=== PATIENT | female | born 1990 | race Caucasian/White ===

== ENCOUNTER 2017-07-24 11:16 | Emergency (ER) | payer OTHER, MEDICAID ==
[~2017-07-24] VITALS: Ht 162.6 cm; Wt 74.8 kg
[~2017-07-24 11:16] MED LIST: ALBUTEROL INHAL17 GM IH; COLACE100 MG PO; DOXYCYCLINE 10100 MG PO; FLAGYL500 MG PO; IBUPROFEN 800800 MG PO; MEDROL DOSPAK21 TA1 PO; PRENATAL; VENTOLIN HFA 1818 GM INH
[2017-07-24 11:42] LABS: URINE BILIRUBIN NEGATIVE (Negative); URINE BLOOD NEGATIVE (Negative); URINE CLARITY CLEAR; URINE COLOR YELLOW; URINE GLUCOSE-RANDOM NEGATIVE (Negative); URINE KETONES NEGATIVE (Negative); URINE LEUKOCYTES-REFLEX NEGATIVE (Negative); URINE NITRITE-REFLEX NEGATIVE (Negative); URINE PROTEIN NEGATIVE (Negative); URINE SPECIFIC GRAVITY <= 1.005 (1.005-1.030); URINE UROBILINOGEN 0.2 E.U./dl (0.2-1.0)
[2017-07-24 12:03] LABS: HEMATOCRIT 36.3 % (37.0-47.0); HEMOGLOBIN 12.3 gm/dL (12.0-15.0); MCH 30.1 pg (26.0-34.0); MCV 88.4 fL (80.0-100.0); MPV 8.3 fl. (7.2-11.1); NUCLEATED RBCS 0 /100WBC; PLATELET COUNT* 261 thou/uL (150-400); RDW-CV 14.1 % (10.5-14.5)
[2017-07-24 12:10] LABS: CALCIUM 8.5 mg/dL (8.5-10.1); CREATININE 0.6 mg/dL (0.6-1.3); POTASSIUM 3.5 mmol/L (3.5-5.1)
[2017-07-24 12:15] LABS: ALBUMIN 3.4 g/dL (3.4-5.0); TOTAL BILIRUBIN 0.7 mg/dL (<0.1-1.0); TOTAL PROTEIN 6.7 g/dL (6.4-8.2)
[2017-07-24 12:46] LABS: ABSOLUTE EOSINOPHILS 0.6 thou/uL (0.0-0.7); ABSOLUTE LYMPHOCYTES 3.1 thou/uL (0.8-5.3); ABSOLUTE MONOCYTES 0.1 thou/uL (0.0-1.2); ABSOLUTE NEUTROPHILS 2.2 thou/uL (1.6-8.1); ANISOCYTOSIS 1+; PLATELET ESTIMATE ADEQUATE; POIKILOCYTOSIS 1+
[2017-07-24 13:28] VITALS: BP 115/86
== END 2017-07-24 13:29 | disposition home or self-care (01) ==
LOC: M.ERS 11:16
PROVIDERS: Nurse Practitioner Family
DX: K42.9 Umbilical hernia without obstruction or gangrene (principal)

== ENCOUNTER 2018-01-19 14:16 | Emergency (ER) | payer OTHER, MEDICAID ==
[~2018-01-19] VITALS: Ht 160 cm; Wt 77.1 kg
[2018-01-19 14:36] LABS: URINE BILIRUBIN NEGATIVE (Negative); URINE BLOOD NEGATIVE (Negative); URINE CLARITY CLEAR; URINE COLOR YELLOW; URINE GLUCOSE-RANDOM NEGATIVE (Negative); URINE KETONES NEGATIVE (Negative); URINE LEUKOCYTES-REFLEX 1+ (Negative); URINE NITRITE-REFLEX NEGATIVE (Negative); URINE PROTEIN NEGATIVE (Negative); URINE SPECIFIC GRAVITY 1.015 (1.005-1.030); URINE UROBILINOGEN 0.2 E.U./dl (0.2-1.0)
[2018-01-19 14:46] LABS: BACTERIA-REFLEX 1-9 Few /HPF (None Seen); MUCUS 4-6 Moderate strn/LPF (None Seen); SQUAMOUS >10 Many /LPF (0-3); URINE WBC-REFLEX 0-5 Rare /HPF (0-5)
[2018-01-19 14:47] LABS: CASTS None Seen /LPF (None Seen); CRYSTALS None Seen /LPF (None Seen); URINE RBC 0-2 Rare /HPF (0-2)
[2018-01-19 14:54] LABS: ABSOLUTE EOSINOPHILS 0.4 thou/uL (0.0-0.7); ABSOLUTE LYMPHOCYTES 2.3 thou/uL (0.8-5.3); ABSOLUTE MONOCYTES 0.4 thou/uL (0.0-1.2); ABSOLUTE NEUTROPHILS 2.3 thou/uL (1.6-8.1); BASOPHILS 0.8 %; EOSINOPHILS 7.9 %; HEMATOCRIT 38.1 % (37.0-47.0); HEMOGLOBIN 12.5 gm/dL (12.0-15.0); LYMPHOCYTES 41.9 %; MCH 28.4 pg (26.0-34.0); MCHC 32.9 g/dL (28.0-37.0); MCV 86.2 fL (80.0-100.0); MONOCYTES 7.4 %; MPV 8.5 fl. (7.2-11.1); NUCLEATED RBCS 0 /100WBC; PLATELET COUNT* 287 thou/uL (150-400); RBC 4.42 mil/uL (4.20-5.00); RDW-CV 14.8 % (10.5-14.5); WBC 5.4 thou/uL (4.0-11.0)
[2018-01-19 15:02] LABS: CALCIUM 8.3 mg/dL (8.5-10.1); CREATININE 0.7 mg/dL (0.6-1.3); POTASSIUM 3.6 mmol/L (3.5-5.1)
[2018-01-19 15:06] LABS: ALBUMIN 3.8 g/dL (3.4-5.0); TOTAL BILIRUBIN 1.3 mg/dL (<0.1-1.0); TOTAL PROTEIN 7.3 g/dL (6.4-8.2)
[2018-01-19 15:53] VITALS: BP 122/83
== END 2018-01-19 15:55 | disposition home or self-care (01) ==
LOC: M.ERS 14:16
PROVIDERS: Nurse Practitioner Family
DX: N93.9 Abnormal uterine and vaginal bleeding, unspecified (principal)

== ENCOUNTER 2018-04-04 12:01 | Emergency (ER) | payer OTHER, MEDICAID ==
[~2018-04-04] VITALS: Ht 160 cm; Wt 78.0 kg
[2018-04-04 12:35] LABS: ABSOLUTE MONOCYTES 0.4 thou/uL (0.0-1.2); ABSOLUTE NEUTROPHILS 2.5 thou/uL (1.6-8.1); HEMOGLOBIN 12.6 gm/dL (12.0-15.0); MCH 28.1 pg (26.0-34.0)
[2018-04-04 12:36] LABS: ABSOLUTE EOSINOPHILS 0.4 thou/uL (0.0-0.7); ABSOLUTE LYMPHOCYTES 2.1 thou/uL (0.8-5.3); BASOPHILS 0.6 %; EOSINOPHILS 7.5 %; HEMATOCRIT 38.7 % (37.0-47.0); LYMPHOCYTES 38.3 %; MCHC 32.6 g/dL (28.0-37.0); MCV 86.2 fL (80.0-100.0); MPV 8.7 fl. (7.2-11.1); NUCLEATED RBCS 0 /100WBC; PLATELET COUNT* 287 thou/uL (150-400); POLYS 46.6 %; RBC 4.49 mil/uL (4.20-5.00); RDW-CV 15.2 % (10.5-14.5); URINE BILIRUBIN NEGATIVE (Negative); URINE BLOOD 1+ (Negative); URINE CLARITY CLEAR; URINE COLOR YELLOW; URINE GLUCOSE-RANDOM NEGATIVE (Negative); URINE KETONES NEGATIVE (Negative); URINE LEUKOCYTES-REFLEX NEGATIVE (Negative); URINE NITRITE-REFLEX NEGATIVE (Negative); URINE PROTEIN TRACE (Negative); URINE SPECIFIC GRAVITY >= 1.030 (1.005-1.030); URINE UROBILINOGEN 0.2 E.U./dl (0.2-1.0); WBC 5.4 thou/uL (4.0-11.0)
[2018-04-04 12:45] LABS: CALCIUM 8.6 mg/dL (8.5-10.1); CREATININE 0.7 mg/dL (0.6-1.3); POTASSIUM 3.4 mmol/L (3.5-5.1)
[2018-04-04 12:50] LABS: ALBUMIN 3.8 g/dL (3.4-5.0); TOTAL BILIRUBIN 1.3 mg/dL (<0.1-1.0); TOTAL PROTEIN 7.2 g/dL (6.4-8.2)
[2018-04-04 13:23] LABS: SQUAMOUS 0-3 Few /LPF (0-3)
[2018-04-04 13:24] LABS: BACTERIA-REFLEX 1-9 Few /HPF (None Seen); CASTS None Seen /LPF (None Seen); CRYSTALS None Seen /LPF (None Seen); MUCUS 0-3 Light strn/LPF (None Seen); URINE RBC 3-10 Few /HPF (0-2); URINE WBC-REFLEX 0-5 Rare /HPF (0-5)
[2018-04-04 13:40] VITALS: BP 131/93
== END 2018-04-04 13:41 | disposition home or self-care (01) ==
LOC: M.ERS 12:01
PROVIDERS: Nurse Practitioner Family
DX: N89.8 Other specified noninflammatory disorders of vagina (principal); R30.0 Dysuria; Z20.2 Contact with and (suspected) exposure to infections with a predominantly sexual mode of transmission

== ENCOUNTER 2018-05-29 11:23 | Emergency (ER) | payer OTHER, MEDICAID ==
[~2018-05-29] VITALS: Ht 157.5 cm; Wt 77.6 kg
[2018-05-29 11:49] LABS: ABSOLUTE EOSINOPHILS 0.3 thou/uL (0.0-0.7); ABSOLUTE LYMPHOCYTES 1.4 thou/uL (0.8-5.3); ABSOLUTE MONOCYTES 0.3 thou/uL (0.0-1.2); ABSOLUTE NEUTROPHILS 3.6 thou/uL (1.6-8.1); BASOPHILS 0.2 %; EOSINOPHILS 5.6 %; HEMATOCRIT 37.1 % (37.0-47.0); HEMOGLOBIN 12.3 gm/dL (12.0-15.0); LYMPHOCYTES 24.2 %; MCH 28.3 pg (26.0-34.0); MCHC 33.1 g/dL (28.0-37.0); MCV 85.5 fL (80.0-100.0); MONOCYTES 6.2 %; MPV 8.1 fl. (7.2-11.1); NUCLEATED RBCS 0 /100WBC; PLATELET COUNT* 230 thou/uL (150-400); POLYS 63.8 %; RBC 4.34 mil/uL (4.20-5.00); RDW-CV 14.8 % (10.5-14.5); WBC 5.6 thou/uL (4.0-11.0)
[2018-05-29 12:00] LABS: CREATININE 0.7 mg/dL (0.6-1.3); POTASSIUM 3.8 mmol/L (3.5-5.1)
[2018-05-29 12:04] LABS: ALBUMIN 3.2 g/dL (3.4-5.0); TOTAL BILIRUBIN 1.1 mg/dL (<0.1-1.0)
[2018-05-29 12:05] LABS: URINE BILIRUBIN NEGATIVE (Negative); URINE BLOOD NEGATIVE (Negative); URINE CLARITY CLEAR; URINE COLOR YELLOW; URINE GLUCOSE-RANDOM NEGATIVE (Negative); URINE KETONES NEGATIVE (Negative); URINE LEUKOCYTES-REFLEX NEGATIVE (Negative); URINE NITRITE-REFLEX NEGATIVE (Negative); URINE PROTEIN NEGATIVE (Negative); URINE UROBILINOGEN 0.2 E.U./dl (0.2-1.0)
[2018-05-29] MEDS ORDERED: DOXYCYCLINE MO100 M1 PO (12:43)
[2018-05-29] MEDS ORDERED: NAPROSYN500 MG PO (12:43)
[2018-05-29] MEDS ORDERED: FLAGYL500 M1 PO (13:01)
[2018-05-29 13:17] VITALS: BP 109/69
== END 2018-05-29 13:18 | disposition home or self-care (01) ==
LOC: M.ERS 11:23
PROVIDERS: Physician Assistant
DX: N72 Inflammatory disease of cervix uteri (principal); N76.0 Acute vaginitis

== ENCOUNTER 2018-08-06 10:12 | Emergency (ER) | payer OTHER, MEDICAID ==
[~2018-08-06] VITALS: Ht 160 cm; Wt 77.6 kg
[~2018-08-06 10:12] MED LIST changes: +DOXYCYCLINE MO100 M1 PO; +FLAGYL500 M1 PO; +NAPROSYN500 MG PO
[2018-08-06 10:43] LABS: URINE BILIRUBIN NEGATIVE (Negative); URINE BLOOD NEGATIVE (Negative); URINE CLARITY CLEAR; URINE COLOR YELLOW; URINE GLUCOSE-RANDOM NEGATIVE (Negative); URINE KETONES NEGATIVE (Negative); URINE LEUKOCYTES-REFLEX TRACE (Negative); URINE NITRITE-REFLEX NEGATIVE (Negative); URINE PROTEIN NEGATIVE (Negative); URINE SPECIFIC GRAVITY <= 1.005 (1.005-1.030); URINE UROBILINOGEN 0.2 E.U./dl (0.2-1.0)
[2018-08-06 10:56] LABS: ABSOLUTE EOSINOPHILS 0.3 thou/uL (0.0-0.7); ABSOLUTE MONOCYTES 0.3 thou/uL (0.0-1.2); ABSOLUTE NEUTROPHILS 1.7 thou/uL (1.6-8.1); BASOPHILS 0.6 %; EOSINOPHILS 6.3 %; HEMATOCRIT 35.4 % (37.0-47.0); LYMPHOCYTES 46.3 %; MCHC 33.8 g/dL (28.0-37.0); MONOCYTES 7.8 %; MPV 8.5 fl. (7.2-11.1); NUCLEATED RBCS 0 /100WBC; PLATELET COUNT* 267 thou/uL (150-400); RBC 4.27 mil/uL (4.20-5.00); RDW-CV 16.3 % (10.5-14.5); WBC 4.3 thou/uL (4.0-11.0)
[2018-08-06 10:56] LABS: BACTERIA-REFLEX 1-9 Few /HPF (None Seen); SQUAMOUS 0-3 Few /LPF (0-3); URINE RBC None Seen /HPF (0-2); URINE WBC-REFLEX 6-15 Few /HPF (0-5)
[2018-08-06 10:57] LABS: CASTS None Seen /LPF (None Seen); CRYSTALS None Seen /LPF (None Seen); MUCUS None Seen strn/LPF (None Seen)
[2018-08-06 11:14] LABS: ALBUMIN 3.5 g/dL (3.4-5.0); CALCIUM 8.5 mg/dL (8.5-10.1); CREATININE 0.7 mg/dL (0.6-1.3); POTASSIUM 3.8 mmol/L (3.5-5.1); TOTAL BILIRUBIN 0.6 mg/dL (<0.1-1.0); TOTAL PROTEIN 6.9 g/dL (6.4-8.2)
[2018-08-06] MEDS ORDERED: NAPROSYN500 MG PO (14:01)
[2018-08-06 14:25] VITALS: BP 139/79
== END 2018-08-06 14:25 | disposition home or self-care (01) ==
LOC: M.ERS 10:12
PROVIDERS: Physician Assistant
DX: R10.33 Periumbilical pain (principal); R10.84 Generalized abdominal pain; R10.2 Pelvic and perineal pain; Z98.890 Other specified postprocedural states

== ENCOUNTER 2018-09-18 05:17 | Emergency (ER) | payer OTHER, MEDICAID ==
[~2018-09-18] VITALS: Ht 157.5 cm; Wt 78.0 kg
[2018-09-18 05:52] LABS: HEMATOCRIT 35.1 % (37.0-47.0); HEMOGLOBIN 11.5 gm/dL (12.0-15.0); MCH 27.3 pg (26.0-34.0); MCHC 32.9 g/dL (28.0-37.0); MCV 83.2 fL (80.0-100.0); MPV 8.8 fl. (7.2-11.1); RBC 4.22 mil/uL (4.20-5.00); RDW-CV 16.1 % (10.5-14.5)
[2018-09-18 05:57] LABS: CALCIUM 7.7 mg/dL (8.5-10.1); CREATININE 0.5 mg/dL (0.6-1.3); POTASSIUM 3.4 mmol/L (3.5-5.1)
[2018-09-18 06:02] LABS: ALBUMIN 3.5 g/dL (3.4-5.0); TOTAL BILIRUBIN 0.6 mg/dL (<0.1-1.0); TOTAL PROTEIN 6.7 g/dL (6.4-8.2)
[2018-09-18 06:11] LABS: ALCOHOL 154 mg/dL (<10)
[2018-09-18 06:13] LABS: ACETAMINOPHEN < 2 ug/mL (10-30); SALICYLATE < 2.8 mg/dL (2.8-20.0)
[2018-09-18 08:08] LABS: URINE BILIRUBIN NEGATIVE (Negative); URINE BLOOD 2+ (Negative); URINE CLARITY CLEAR; URINE COLOR YELLOW; URINE GLUCOSE-RANDOM NEGATIVE (Negative); URINE KETONES NEGATIVE (Negative); URINE LEUKOCYTES NEGATIVE (Negative); URINE NITRITE NEGATIVE (Negative); URINE PROTEIN NEGATIVE (Negative); URINE SPECIFIC GRAVITY 1.015 (1.005-1.030); URINE UROBILINOGEN 0.2 E.U./dl (0.2-1.0)
[2018-09-18 08:17] LABS: BACTERIA 1-9 Few /HPF (None Seen); CASTS None Seen /LPF (None Seen); CRYSTALS None Seen /LPF (None Seen); MUCUS None Seen strn/LPF (None Seen); SQUAMOUS 4-10 Moderate /LPF (0-3); URINE RBC 3-10 Few /HPF (0-2); URINE WBC 0-5 Rare /HPF (0-5)
[2018-09-18 08:18] LABS: AMP/METHAMP Negative (Negative); BARBITURATES Negative (Negative); BENZODIAZEPINES Negative (Negative); COCAINE Negative (Negative); METHADONE Negative (Negative); OPIATES Negative (Negative); PCP Negative (Negative); THC Negative (Negative)
[2018-09-18 09:24] VITALS: BP 128/91
--- NOTE | 2018-09-18 11:28 | EKG ---
[place] [address] ELECTROCARDIOGRAM REPORT Name: ALEXANDREA COPELAND [id number] Admission: 09/18/18 Attend Phys: Discharge: 09/18/18 Date of : 89 Report #: [id number] THIS REPORT FOR: //name// [facility] ED Test Date: 2018-09-18 Test Time: 05:33:42 Pat Name: ALEXANDREA COPELAND Department: Room: Gender: F [employer]: [place] : 1990 Requested By: Inna Burns Order Number: [id number] MD: Juan M Perry Measurements Intervals [place] Rate: 77 P: 52 SD: 208 QRS: 51 QRSD: 105 T: 28 QT: 398 QTc: 451 Interpretive Statements Sinus rhythm Borderline prolonged SD interval No previous ECG available for comparison Electronically Signed On 09-18-2018 11:28:18 CDT by Juan M Perry [email or web address] <ELECTRONICALLY SIGNED> By: Juan M Perry MD, [facility] 09/18/18 [id number] Juan M Perry MD, FACC /EPI
== END 2018-09-18 09:37 | disposition home or self-care (01) ==
LOC: M.ERS 05:17
PROVIDERS: Personal Emergency Response Attendant
DX: F10.129 Alcohol abuse with intoxication, unspecified (principal); Y90.6 Blood alcohol level of 120-199 mg/100 ml; R11.2 Nausea with vomiting, unspecified; Z98.890 Other specified postprocedural states; Z79.899 Other long term (current) drug therapy

== ENCOUNTER 2018-12-05 11:29 | Emergency (ER) | payer OTHER ==
[~2018-12-05] VITALS: Ht 160 cm; Wt 77.6 kg
[2018-12-05] MEDS ORDERED: AMOXICILLIN 50500 MG PO (12:13)
[2018-12-05] MEDS ORDERED: LIDOCAINE VISC100 ML SWISH&SPIT (12:16)
[2018-12-05 12:30] VITALS: BP 122/82
== END 2018-12-05 12:30 | disposition home or self-care (01) ==
LOC: M.ERS 11:29
DX: K08.89 Other specified disorders of teeth and supporting structures (principal)

== ENCOUNTER 2018-12-20 12:32 | Emergency (ER) | payer MEDICAID ==
[~2018-12-20] VITALS: Ht 157.5 cm; Wt 77.6 kg
[~2018-12-20 12:32] MED LIST changes: +AMOXICILLIN 50500 MG PO; +LIDOCAINE VISC100 ML SWISH&SPIT
[2018-12-20 12:54] LABS: URINE BILIRUBIN NEGATIVE (Negative); URINE BLOOD NEGATIVE (Negative); URINE CLARITY CLEAR; URINE COLOR YELLOW; URINE GLUCOSE-RANDOM NEGATIVE (Negative); URINE KETONES NEGATIVE (Negative); URINE LEUKOCYTES-REFLEX NEGATIVE (Negative); URINE NITRITE-REFLEX NEGATIVE (Negative); URINE PROTEIN TRACE (Negative); URINE UROBILINOGEN 0.2 E.U./dl (0.2-1.0)
[2018-12-20 13:14] LABS: ABSOLUTE BASOPHILS 0.1 thou/uL (0.0-0.2); ABSOLUTE EOSINOPHILS 0.4 thou/uL (0.0-0.7); ABSOLUTE LYMPHOCYTES 2.1 thou/uL (0.8-5.3); ABSOLUTE MONOCYTES 0.4 thou/uL (0.0-1.2); ABSOLUTE NEUTROPHILS 2.5 thou/uL (1.6-8.1); EOSINOPHILS 7.3 %; HEMATOCRIT 39.2 % (37.0-47.0); HEMOGLOBIN 12.6 gm/dL (12.0-15.0); LYMPHOCYTES 38.6 %; MCH 27.2 pg (26.0-34.0); MCHC 32.2 g/dL (28.0-37.0); MCV 84.3 fL (80.0-100.0); MONOCYTES 7.2 %; MPV 8.9 fl. (7.2-11.1); NUCLEATED RBCS 0 /100WBC; PLATELET COUNT* 291 thou/uL (150-400); POLYS 45.9 %; RBC 4.65 mil/uL (4.20-5.00); RDW-CV 14.9 % (10.5-14.5); WBC 5.4 thou/uL (4.0-11.0)
[2018-12-20 13:24] LABS: CALCIUM 8.7 mg/dL (8.5-10.1); CREATININE 0.7 mg/dL (0.6-1.3); POTASSIUM 3.5 mmol/L (3.5-5.1)
[2018-12-20 13:28] LABS: ALBUMIN 4.1 g/dL (3.4-5.0); TOTAL BILIRUBIN 0.7 mg/dL (<0.1-1.0); TOTAL PROTEIN 7.4 g/dL (6.4-8.2)
[2018-12-20] MEDS ORDERED: NABUMETONE 750750 M1 PO (13:31)
[2018-12-20 13:48] VITALS: BP 137/89
== END 2018-12-20 13:50 | disposition home or self-care (01) ==
LOC: M.ERS 12:32
PROVIDERS: Nurse Practitioner Family
DX: G89.29 Other chronic pain (principal); R10.30 Lower abdominal pain, unspecified

== ENCOUNTER 2019-01-01 15:11 | Emergency (ER) | payer OTHER, MEDICAID ==
[~2019-01-01] VITALS: Ht 160 cm; Wt 78.0 kg
[~2019-01-01 15:11] MED LIST changes: +NABUMETONE 750750 M1 PO
[2019-01-01 15:39] LABS: URINE BILIRUBIN NEGATIVE (Negative); URINE BLOOD NEGATIVE (Negative); URINE CLARITY CLEAR; URINE COLOR YELLOW; URINE GLUCOSE-RANDOM NEGATIVE (Negative); URINE KETONES NEGATIVE (Negative); URINE LEUKOCYTES-REFLEX TRACE (Negative); URINE NITRITE-REFLEX NEGATIVE (Negative); URINE PROTEIN NEGATIVE (Negative); URINE UROBILINOGEN 0.2 E.U./dl (0.2-1.0)
[2019-01-01 15:41] LABS: ABSOLUTE EOSINOPHILS 0.5 thou/uL (0.0-0.7); ABSOLUTE LYMPHOCYTES 2.5 thou/uL (0.8-5.3); ABSOLUTE MONOCYTES 0.4 thou/uL (0.0-1.2); BASOPHILS 0.7 %; EOSINOPHILS 9.3 %; HEMOGLOBIN 11.5 gm/dL (12.0-15.0); LYMPHOCYTES 46.5 %; MCH 27.5 pg (26.0-34.0); MCHC 32.8 g/dL (28.0-37.0); MCV 83.8 fL (80.0-100.0); MONOCYTES 6.5 %; MPV 8.6 fl. (7.2-11.1); NUCLEATED RBCS 0 /100WBC; PLATELET COUNT* 254 thou/uL (150-400); RBC 4.17 mil/uL (4.20-5.00); RDW-CV 15.1 % (10.5-14.5); WBC 5.5 thou/uL (4.0-11.0)
[2019-01-01 15:47] LABS: SQUAMOUS >10 Many /LPF (0-3)
[2019-01-01 15:48] LABS: CALCIUM 8.8 mg/dL (8.5-10.1); CREATININE 0.6 mg/dL (0.6-1.3); POTASSIUM 3.6 mmol/L (3.5-5.1)
[2019-01-01 15:48] LABS: BACTERIA-REFLEX >30 Many /HPF (None Seen); CASTS None Seen /LPF (None Seen); MUCUS 0-3 Light strn/LPF (None Seen); URINE RBC None Seen /HPF (0-2); URINE WBC-REFLEX 0-5 Rare /HPF (0-5)
[2019-01-01 15:49] LABS: CRYSTALS None Seen /LPF (None Seen)
[2019-01-01 15:52] LABS: ALBUMIN 3.7 g/dL (3.4-5.0); TOTAL BILIRUBIN 0.8 mg/dL (<0.1-1.0); TOTAL PROTEIN 6.9 g/dL (6.4-8.2)
[2019-01-01] MEDS ORDERED: BACTRIM DS TAB1 EACH PO (16:44)
[2019-01-01] MEDS ORDERED: TORADOL 10 MG T10 MG PO (16:44)
[2019-01-01 17:02] VITALS: BP 126/78
== END 2019-01-01 17:02 | disposition home or self-care (01) ==
LOC: M.ERS 15:11
PROVIDERS: Physician Assistant
DX: N83.201 Unspecified ovarian cyst, right side (principal); N85.2 Hypertrophy of uterus; Z98.51 Tubal ligation status

== ENCOUNTER 2019-03-11 09:51 | Emergency (ER) | payer OTHER, MEDICAID ==
[~2019-03-11] VITALS: Ht 167.6 cm; Wt 77.1 kg
[~2019-03-11 09:51] MED LIST changes: +BACTRIM DS TAB1 EACH PO; +TORADOL 10 MG T10 MG PO
[2019-03-11 10:54] LABS: INFLUENZA A ANTIGEN Negative (Negative); INFLUENZA B ANTIGEN Negative (Negative)
[2019-03-11] MEDS ORDERED: VENTOLIN HFA 1818 GM INH (11:16)
[2019-03-11] MEDS ORDERED: AZITHROMYCIN500 MG PO (11:16)
[2019-03-11] MEDS ORDERED: MEDROLDOSEPACK PO (11:16)
[2019-03-11] MEDS ORDERED: TESSALON PERLE100 MG PO (11:31)
[2019-03-11 11:34] VITALS: BP 131/82
== END 2019-03-11 11:34 | disposition home or self-care (01) ==
LOC: M.ERS 09:51
PROVIDERS: Nurse Practitioner Family
DX: J20.9 Acute bronchitis, unspecified (principal); Z98.51 Tubal ligation status

== ENCOUNTER 2019-04-19 09:22 | Emergency (ER) | payer OTHER, MEDICAID ==
[~2019-04-19] VITALS: Ht 160 cm; Wt 77.6 kg
[~2019-04-19 09:22] MED LIST changes: +AZITHROMYCIN500 MG PO; +MEDROLDOSEPACK PO; +TESSALON PERLE100 MG PO
[2019-04-19 10:04] LABS: URINE BILIRUBIN NEGATIVE (Negative); URINE BLOOD NEGATIVE (Negative); URINE CLARITY CLEAR; URINE COLOR STRAW; URINE GLUCOSE-RANDOM NEGATIVE (Negative); URINE KETONES NEGATIVE (Negative); URINE LEUKOCYTES-REFLEX 2+ (Negative); URINE NITRITE-REFLEX NEGATIVE (Negative); URINE PROTEIN NEGATIVE (Negative); URINE SPECIFIC GRAVITY <= 1.005 (1.005-1.030); URINE UROBILINOGEN 0.2 E.U./dl (0.2-1.0)
[2019-04-19 10:12] LABS: SQUAMOUS >10 Many /LPF (0-3)
[2019-04-19 10:13] LABS: BACTERIA-REFLEX >30 Many /HPF (None Seen); CASTS None Seen /LPF (None Seen); CRYSTALS None Seen /LPF (None Seen); MUCUS 0-3 Light strn/LPF (None Seen); URINE RBC 0-2 Rare /HPF (0-2); URINE WBC-REFLEX 0-5 Rare /HPF (0-5)
[2019-04-19 11:12] LABS: ABSOLUTE EOSINOPHILS 0.2 thou/uL (0.0-0.7); ABSOLUTE LYMPHOCYTES 2.1 thou/uL (0.8-5.3); ABSOLUTE MONOCYTES 0.3 thou/uL (0.0-1.2); ABSOLUTE NEUTROPHILS 2.1 thou/uL (1.6-8.1); BASOPHILS 0.8 %; EOSINOPHILS 4.9 %; HEMATOCRIT 36.4 % (37.0-47.0); HEMOGLOBIN 12.2 gm/dL (12.0-15.0); LYMPHOCYTES 43.4 %; MCH 28.3 pg (26.0-34.0); MCHC 33.4 g/dL (28.0-37.0); MCV 84.7 fL (80.0-100.0); MONOCYTES 6.5 %; MPV 8.6 fl. (7.2-11.1); NUCLEATED RBCS 0 /100WBC; PLATELET COUNT* 251 thou/uL (150-400); POLYS 44.4 %; RDW-CV 14.5 % (10.5-14.5); WBC 4.8 thou/uL (4.0-11.0)
[2019-04-19 11:33] LABS: CALCIUM 8.8 mg/dL (8.5-10.1); CREATININE 0.7 mg/dL (0.6-1.3); POTASSIUM 3.7 mmol/L (3.5-5.1)
[2019-04-19 11:37] LABS: ALBUMIN 3.8 g/dL (3.4-5.0); TOTAL BILIRUBIN 0.9 mg/dL (<0.1-1.0)
[2019-04-19] MEDS ORDERED: NAPROSYN500 MG PO (12:13)
[2019-04-19] MEDS ORDERED: MACROBID 100 M100 M2 PO (12:13)
[2019-04-19] MEDS ORDERED: FLAGYL500 M1 PO (12:13)
[2019-04-19 13:12] VITALS: BP 140/92
== END 2019-04-19 13:15 | disposition home or self-care (01) ==
LOC: M.ERS 09:22
PROVIDERS: Family Medicine; Nurse Practitioner Family
DX: N76.0 Acute vaginitis (principal); N39.0 Urinary tract infection, site not specified; Z98.51 Tubal ligation status

== ENCOUNTER 2019-07-02 10:11 | Emergency (ER) | payer OTHER, MEDICAID ==
[~2019-07-02] VITALS: Ht 157.5 cm; Wt 80.7 kg
[~2019-07-02 10:11] MED LIST changes: +MACROBID 100 M100 M2 PO
[2019-07-02 10:39] LABS: URINE BILIRUBIN NEGATIVE (Negative); URINE BLOOD NEGATIVE (Negative); URINE CLARITY CLEAR; URINE COLOR YELLOW; URINE GLUCOSE-RANDOM NEGATIVE (Negative); URINE KETONES NEGATIVE (Negative); URINE LEUKOCYTES-REFLEX NEGATIVE (Negative); URINE NITRITE-REFLEX NEGATIVE (Negative); URINE PROTEIN NEGATIVE (Negative); URINE SPECIFIC GRAVITY 1.025 (1.005-1.030); URINE UROBILINOGEN 0.2 E.U./dl (0.2-1.0)
[2019-07-02 11:04] LABS: ABSOLUTE EOSINOPHILS 0.2 thou/uL (0.0-0.7); ABSOLUTE LYMPHOCYTES 1.9 thou/uL (0.8-5.3); ABSOLUTE MONOCYTES 0.3 thou/uL (0.0-1.2); ABSOLUTE NEUTROPHILS 2.3 thou/uL (1.6-8.1); BASOPHILS 0.5 %; HEMATOCRIT 34.4 % (37.0-47.0); HEMOGLOBIN 11.5 gm/dL (12.0-15.0); LYMPHOCYTES 39.9 %; MCH 28.2 pg (26.0-34.0); MCHC 33.5 g/dL (28.0-37.0); MCV 84.2 fL (80.0-100.0); MONOCYTES 5.8 %; MPV 8.3 fl. (7.2-11.1); NUCLEATED RBCS 0 /100WBC; PLATELET COUNT* 272 thou/uL (150-400); POLYS 48.8 %; RBC 4.08 mil/uL (4.20-5.00); RDW-CV 16.2 % (10.5-14.5); WBC 4.7 thou/uL (4.0-11.0)
[2019-07-02 11:10] LABS: CREATININE 0.6 mg/dL (0.6-1.3); POTASSIUM 3.5 mmol/L (3.5-5.1)
[2019-07-02 11:15] LABS: ALBUMIN 3.5 g/dL (3.4-5.0); TOTAL BILIRUBIN 0.7 mg/dL (<0.1-1.0); TOTAL PROTEIN 6.6 g/dL (6.4-8.2)
[2019-07-02] MEDS ORDERED: SUPRAX400 M1 PO (11:25)
[2019-07-02] MEDS ORDERED: NAPROSYN500 MG PO (11:25)
[2019-07-02] MEDS ORDERED: ZITHROMAX TRI-500 MG PO (11:25)
[2019-07-02 11:41] VITALS: BP 1322/77
== END 2019-07-02 11:42 | disposition home or self-care (01) ==
LOC: M.ERS 10:11
PROVIDERS: Family Medicine
DX: G89.29 Other chronic pain (principal); R10.2 Pelvic and perineal pain; N93.9 Abnormal uterine and vaginal bleeding, unspecified

== ENCOUNTER 2019-07-05 15:28 | Emergency (ER) | payer OTHER, MEDICAID ==
[~2019-07-05] VITALS: Ht 160 cm; Wt 80.7 kg
[~2019-07-05 15:28] MED LIST changes: +SUPRAX400 M1 PO; +ZITHROMAX TRI-500 MG PO
[2019-07-05 16:22] VITALS: BP 125/80
== END 2019-07-05 16:22 | disposition home or self-care (01) ==
LOC: M.ERS 15:28
DX: R10.2 Pelvic and perineal pain (principal); G89.29 Other chronic pain; Z98.51 Tubal ligation status

== ENCOUNTER 2020-10-07 17:04 | Emergency (ER) | payer OTHER, MEDICAID ==
[~2020-10-07] VITALS: Ht 160 cm; Wt 89.8 kg
[2020-10-07 17:55] LABS: URINE BILIRUBIN NEGATIVE (Negative); URINE BLOOD NEGATIVE (Negative); URINE CLARITY CLEAR; URINE COLOR YELLOW; URINE GLUCOSE-RANDOM NEGATIVE (Negative); URINE KETONES NEGATIVE (Negative); URINE LEUKOCYTES-REFLEX NEGATIVE (Negative); URINE NITRITE-REFLEX NEGATIVE (Negative); URINE PROTEIN 1+ (Negative); URINE SPECIFIC GRAVITY 1.015 (1.005-1.030)
[2020-10-07 18:25] LABS: ABSOLUTE EOSINOPHILS 0.1 thou/uL (0.0-0.7); ABSOLUTE MONOCYTES 0.6 thou/uL (0.0-1.2); ABSOLUTE NEUTROPHILS 6.8 thou/uL (1.6-8.1); BASOPHILS 0.1 %; EOSINOPHILS 1.4 %; HEMATOCRIT 41.9 % (37.0-47.0); HEMOGLOBIN 14.3 gm/dL (12.0-15.0); MCH 29.4 pg (26.0-34.0); MCHC 34.2 g/dL (28.0-37.0); MONOCYTES 6.1 %; MPV 8.4 fl. (7.2-11.1); NUCLEATED RBCS 0 /100WBC; PLATELET COUNT* 315 thou/uL (150-400); POLYS 71.4 %; RBC 4.88 mil/uL (4.20-5.00); RDW-CV 14.2 % (10.5-14.5); WBC 9.5 thou/uL (4.0-11.0)
[2020-10-07 18:33] LABS: CALCIUM 8.9 mg/dL (8.5-10.1); CREATININE 0.6 mg/dL (0.6-1.3); POTASSIUM 3.9 mmol/L (3.5-5.1)
[2020-10-07 18:37] LABS: ALBUMIN 4.6 g/dL (3.4-5.0); TOTAL BILIRUBIN 0.8 mg/dL (<0.1-1.0); TOTAL PROTEIN 8.7 g/dL (6.4-8.2)
[2020-10-07] MEDS ORDERED: ONDANSETRON ODT4 MG PO (21:20)
[2020-10-07] MEDS ORDERED: PROMS25 WY RECTAL (21:20)
[2020-10-07 21:22] VITALS: BP 129/92
== END 2020-10-07 21:22 | disposition home or self-care (01) ==
LOC: M.ERS 17:04
PROVIDERS: Physician Assistant
DX: R10.13 Epigastric pain (principal); R11.2 Nausea with vomiting, unspecified